=== PATIENT | female | born 1955 | race Caucasian/White ===

== ENCOUNTER 2019-06-15 22:51 | Emergency (ER) | payer OTHER ==
[~2019-06-15] VITALS: Ht 162.6 cm; Wt 95.3 kg
[2019-06-15 22:55] VITALS: BP_SYST 159
--- NOTE | 2019-06-15 22:58 | NUR ---
Patient to ER bed 8 to gown for evaluation. Side rails up.
--- NOTE | 2019-06-15 22:59 | NUR ---
Report given to Giuseppe ALVAREZ.
--- NOTE | 2019-06-15 23:13 | NUR ---
Pt brought in by S ambulance. Pt awake, alert, oriented x4. Pt states that she has had flu-like symptoms for approx 3 days,. Pt states lower back pain with cough. x2 episodes vomiting. No chest pain, diarrhea or shortness of breath. No acute distress at this time. VSS.
--- NOTE | 2019-06-15 23:15 | NUR ---
ER at bedside examining patient.
[2019-06-15] MEDS ORDERED: NACL 0.9% 1,000 ML IV ONE (23:30)
[2019-06-15] MEDS ORDERED: KETOROLAC TROMETHAMINE 30 MG VIAL IVP ONE (23:30)
--- NOTE | 2019-06-16 00:30 | NUR ---
Pt resting in ED bed. No acute signs of distress. Bedside resting. Pt tolerating IV fluids well.
[2019-06-16 01:10] VITALS: BP_SYST 140
--- NOTE | 2019-06-16 01:10 | NUR ---
Patient given written and verbal discharge instructions and verbalizes understanding. ER MD discussed with patient the results and treatment provided. Patient in stable condition. ID arm band removed. IV catheter removed intact and dressing applied, no active bleeding. Rx of Motrin, Zofran, prednisone given. Patient educated on pain management and to follow up with PMD. Pain Scale 0/10. Opportunity for questions provided and answered. Medication side effect fact sheet provided.
== END 2019-06-16 01:10 | disposition home or self-care (01) ==
LOC: SED 22:51
DX: J11.1 Influenza due to unidentified influenza virus with other respiratory manifestations (principal); R05 Cough; I10 Essential (primary) hypertension; Z88.6 Allergy status to analgesic agent
CPT/HCPCS: 81002; 81025; 96374; 99283; J1885; J7030